=== PATIENT | male | born 1945 | race Caucasian/White ===

== ENCOUNTER 2020-08-04 12:59 | Inpatient (IN) ==
[2020-08-04] MEDS ORDERED: NORMAL SALINE 1,000 ML IV ONE (13:08)
--- NOTE | 2020-08-04 13:24 | ERNOTE ---
Neuro HPI ER Record Date of Service: 08/04/20 Presenting Symptoms: confusion Time Seen by Provider: 08/04/20 13:01 Source: patient, EMS Exam Limitations: clinical condition Immunizations: IMMUNIZATION HX Immunizations Up to Date No History of Influenza Vaccine More Information Required Hx Pneumococcal Vaccination More Information Required Allergies/Adverse Reactions: Allergies Allergy/AdvReac Type Severity Reaction Status Date / Time amoxicillin [Amoxicillin] Allergy Mild Hives Verified 08/04/20 13:12 Home Medications: HOME MEDICATIONS blood sugar diagnostic See Dose Instructions .ROUTE .MEDSUPPLY #20 ea 03/13/18 [Last Taken Unknown] blood-glucose meter See Dose Instructions .ROUTE .MEDSUPPLY #1 ea 03/13/18 [Last Taken Unknown] finasteride 5 mg tablet 5 mg PO DAILY 03/13/18 [Last Taken Unknown] lancets 28 gauge See Dose Instructions .ROUTE .MEDSUPPLY #25 ea 03/13/18 [Last Taken Unknown] tamsulosin 0.4 mg capsule 0.4 mg PO DAILY 03/13/18 [Last Taken Unknown] glipizide 10 mg tablet See Rx Instructions .ROUTE .COMPLEX #60 tablet 10/11/19 [Last Taken Unknown] simvastatin 40 mg tablet See Rx Instructions .ROUTE .COMPLEX #30 unknown measurement unit code: tablet 02/17/20 [Last Taken Unknown] levothyroxine 75 mcg tablet See Rx Instructions .ROUTE .COMPLEX #30 unknown measurement unit code: tablet 03/19/20 [Last Taken Unknown] clopidogrel 75 mg tablet See Rx Instructions .ROUTE .COMPLEX #30 tablet 06/05/20 [Last Taken Unknown] metformin 1,000 mg tablet 1,000 mg PO BID #60 tab 06/05/20 [Last Taken Unknown] - History of Present Illness Narrative: Patient presents to the ED for confusion He was apparently continuing to drive through the back drive up window and ask the same questions. Normally the bank employees stay is is fine but this was very unusual for him so EMS called. Noted to be confused and brought to the ED. He has no complaints. Does not know the year, did not know the president but was told that and now remembers that. No physical complaints, no pain, no trauma. Unknown onset of Sx. Onset: cannot confirm onset Severity: moderate - Character of Deficits New weakness: Present: other - none Altered sensation: Present: other - none Additional Deficits: Absent: vision problems, difficulty swallowing, decrease ability to stand Baseline Cognition: Present: alert, oriented x 4 Associated Symptoms: Reports: confused. Denies: fever/chills, chest pain, neck/ back pain, headache, seizure, decreased responsiveness Prior Treament: Denies: recently seen Review of Systems - Narrative Narrative: unable to obtain ROS in entirety due to clinical condition Medical History (Last Reviewed 08/04/20 @ 13:23 by Isaac Calixto MD) Diabetes mellitus type 2 in nonobese Onset Date: ~12/2009 Hyperlipidemia Onset Date: Unknown Hypertension Onset Date: Unknown Hypothyroidism Onset Date: Unknown Stroke Onset Date: Unknown Surgical History: Surgical History (Last Reviewed 08/04/20 @ 13:23 by Isaac Calixto MD) History of cholecystectomy Onset Date: Unknown History of tonsillectomy Onset Date: Unknown Family History: Family History (Last Reviewed 08/04/20 @ 13:23 by Isaac Calixto MD) Father CAD (coronary artery disease) Mother Diabetes Social History: (Last Reviewed 08/04/20 @ 13:23 by Isaac Calixto MD) Social History: Marital status: household members: none Service: Yes Service comment: [facility] Tobacco: Smoking Status: Never smoker Alcohol: alcohol intake: never Substance Use: substance use type: does not use Dietary Habits: caffeine: Yes Physical Exam - Physical Exam General Appearance: Present: alert, no apparent distress Head Exam: Present: normal inspection, no evidence of injury Eye Exam: Normal inspection: bilateral, PERRL: bilateral Ears, Nose, Throat: Present: normal ENT inspection Neck: Present: normal inspection Respiratory: Present: no respiratory distress, normal breath sounds, no accessory muscle use, lungs clear Cardiovascular/Chest: Present: regular rate, rhythm, normal peripheral pulses Gastrointestinal/Abdominal: Present: normal bowel sounds, nontender, nondistend ed, soft Back Exam: Absent: CVA tenderness (R), CVA tenderness (L) Extremity Exam: Present: non-tender, normal range of motion Neurological Exam: Present: no motor/sensory deficits, 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 - Vital Signs Patient's Vital Signs:: I have reviewed the patient's vital signs. Vital Signs: Vital Signs 08/04/20 13:00 Temperature 36.2 C Pulse Rate 94 Respiratory Rate 15 Blood Pressure 141/80 O2 Sat by Pulse Oximetry 93 - EKG EKG #1 EKG: NSR EKG read: Interp. by me EKG Comments: NSR rate 96. Ectopy noted. Non-specific ST/T wave changes, no STEMI - X-Ray X-Ray #1 X-Ray: chest Interpretation: Interp. by me X-ray Comments: I personally reviewed CXR image as well as official radiology report - CT/Ultrasound CT/Ultrasound Narrative: I reviewed official radiology report for CT head. - Progress/Reassessment Chief Complaint: Altered Mental Status Progress Note-Subjective: 08/04/20 14:54 Patient given IV ABx initially but did come back COVID positive. This is covid pneumonia. He is altered and cannot go home from this standpoint, likely from the Covid but he does have Hx of stroke so this may be sorted out. D/W Dr Zuniga who will admit. He understands need for admission. Departure Clinical Impression: Confusion, Pneumonia due to COVID-19 virus, Hypokalemia, Hyperglycemia - Departure Disposition: Still a patient Condition: Fair Referrals: Eneida Munguia MD [Primary Care Provider] -
[2020-08-04 13:39] LABS: Hematocrit 43.5 % (42.0-52.0); Hemoglobin 15.3 gm/dL (13.5-18.0); Mean Cell Volume 88.1 fl (78-100); Mean Corpuscular Hgb Conc 35.2 g/dl (32-36); Mean Platelet Volume 10.3 fl (8-11.3); Platelet Count 293 K/mm3 (150-450); Red Blood Count 4.94 M/mm3 (4.7-6.0); Red Cell Distribution Width 12.3 % (11.5-14.0); White Blood Count 11.6 K/mm3 (4.0-10.5)
[2020-08-04 13:46] LABS: Total Cells Counted 100
[2020-08-04 13:59] LABS: Band 5 % (0-2.0); Lymphocyte 13 % (20-51); Monocyte 2 % (0-9); Neutrophil 80 % (42-75); Neutrophil # 9.3 K/mm3 (1.3-6.0)
[2020-08-04 14:00] LABS: Platelet Estimate Normal (NORMAL); RBC Morphology Normal (NORMAL)
[2020-08-04 14:02] LABS: ALT 49 U/L (19-67); AST 33 U/L (0-48); Alkaline Phosphatase * 75 U/L (50-170); Anion Gap 12.7 mmol/L (6.8-13.8); BUN/Creatinine Ratio 27.1 (9.0-21.6); Bilirubin, Total 1.7 mg/dL (0.0-1.1); Blood Urea Nitrogen 32 mg/dL (6-23); Ca. Corrected For Albumin 9.7 mg/dL (8.4-10.2); Calcium * 9.2 mg/dL (7.9-10.9); Carbon Dioxide 27.9 mmol/L (24-32.6); Chloride 94 mmol/L (97-106); Glucose * 437 mg/dL (70-110); Potassium 2.6 mmol/L (3.4-4.6); Sodium 132 mmol/L (132-142)
[2020-08-04 14:03] LABS: Troponin I Less than 0.017 ng/mL (0.00-0.10)
[2020-08-04] MEDS ORDERED: LEVOFLOXACIN IN DEXTROSE 5 % 500 MG/100 ML BAG IV ONE (14:16)
[2020-08-04] MEDS ORDERED: POTASSIUM CHLORIDE IN WATER 100 ML IV ONE (14:55)
[2020-08-04 16:49] LABS: Urine Bilirubin Negative (NEGATIVE); Urine Blood 50 /ul (NEGATIVE); Urine Ketone 15 mg/dL (NEGATIVE); Urine Nitrite Negative (NEGATIVE); Urine Protein 30 mg/dL (NEGATIVE); Urine Specific Gravity 1.015 SP.GR. (1.005-1.030); Urine Urobilinogen Normal (NORMAL)
[2020-08-04 17:01] LABS: Cocaine Ur Negative (NEGATIVE); Urine Barbiturate Negative (NEGATIVE); Urine Benzodiazepines Negative (NEGATIVE); Urine Opiates Negative (NEGATIVE); Urine PCP Negative (NEGATIVE); Urine THC Negative (NEGATIVE)
[2020-08-04 17:07] LABS: Urine Appearance Clear (CLEAR); Urine Color Yellow
[2020-08-04 17:08] LABS: Urine Bacteria 2+; Urine RBC TRACE /hpf (0-5); Urine WBC TRACE /hpf (0-5)
--- NOTE | 2020-08-04 18:19 | HP ---
Chief Complaint - Chief Complaint Date of Service: 08/04/20 Time of Service: 16:46 Chief Complaint: Altered mental status History of Present Illness: 75-year-old male with a past medical history of hypertension, hyperlipidemia, type 2 diabetes mellitus, hypothyroidism, stroke presents with altered mental status. He was found driving around the bank in a confused state. The staff at the [place] stated he was driving around the bank repeatedly trying to withdraw money. The staff recognized the patient and realized this was not normal behavior for him. They called the police and he was brought to the emergency room. In the ER he was found to have stable vitals, mild leukocytosis at 11.6, potassium of 2.6, lactic acid of 2.4, normal UA, normal tox screen, Covid positive. Chest x-ray shows left lung infiltrate. He is admitted for Covid pneumonia. He received 10 mEq of potassium in the ER and a dose of Levaquin. Medical History (Last Reviewed 08/04/20 @ 13:23 by Isaac Calixto MD) Diabetes mellitus type 2 in nonobese Onset Date: ~12/2009 Hyperlipidemia Onset Date: Unknown Hypertension Onset Date: Unknown Hypothyroidism Onset Date: Unknown Stroke Onset Date: Unknown Surgical History: Surgical History (Last Reviewed 08/04/20 @ 13:23 by Isaac Calixto MD) History of cholecystectomy Onset Date: Unknown History of tonsillectomy Onset Date: Unknown Family History: Family History (Last Reviewed 08/04/20 @ 13:23 by Isaac Calixto MD) Father CAD (coronary artery disease) Mother Diabetes Social History: (Last Reviewed 08/04/20 @ 13:23 by Isaac Calixto MD) Social History: Marital status: household members: none Service: Yes Service comment: [facility] Tobacco: Smoking Status: Never smoker Alcohol: alcohol intake: never Substance Use: substance use type: does not use Dietary Habits: caffeine: Yes Review Of Systems (GEN) - Review of Systems Generalized/Overall Review: Absent: Fever Respiratory: Absent: Shortness of Breath Cardiac: Absent: Chest Pain Abdominal: Absent: Abdominal Pain Misc: All systems neg except as marked Immunizations: IMMUNIZATION HX Immunizations Up to Date No History of Influenza Vaccine More Information Required Hx Pneumococcal Vaccination More Information Required Allergies/Adverse Reactions: Allergies Allergy/AdvReac Type Severity Reaction Status Date / Time amoxicillin [Amoxicillin] Allergy Mild Hives Verified 08/04/20 13:12 Home Medications: HOME MEDICATIONS blood sugar diagnostic See Dose Instructions .ROUTE .MEDSUPPLY #20 ea 03/13/18 [Last Taken Unknown] blood-glucose meter See Dose Instructions .ROUTE .MEDSUPPLY #1 ea 03/13/18 [Last Taken Unknown] finasteride 5 mg tablet 5 mg PO DAILY 03/13/18 [Last Taken Unknown] lancets 28 gauge See Dose Instructions .ROUTE .MEDSUPPLY #25 ea 03/13/18 [Last Taken Unknown] tamsulosin 0.4 mg capsule 0.4 mg PO DAILY 03/13/18 [Last Taken Unknown] glipizide 10 mg tablet See Rx Instructions .ROUTE .COMPLEX #60 tablet 10/11/19 [Last Taken Unknown] simvastatin 40 mg tablet See Rx Instructions .ROUTE .COMPLEX #30 unknown measurement unit code: tablet 02/17/20 [Last Taken Unknown] levothyroxine 75 mcg tablet See Rx Instructions .ROUTE .COMPLEX #30 unknown measurement unit code: tablet 03/19/20 [Last Taken Unknown] clopidogrel 75 mg tablet See Rx Instructions .ROUTE .COMPLEX #30 tablet 06/05/20 [Last Taken Unknown] metformin 1,000 mg tablet 1,000 mg PO BID #60 tab 06/05/20 [Last Taken Unknown] Exam - Exam Vital Signs: Vital Signs - Last Taken Temp 36.2 C 08/04/20 13:00 Pulse 90 08/04/20 16:30 Resp 14 08/04/20 16:30 BP 102/64 08/04/20 16:30 Pulse Ox 95 08/04/20 16:30 Constitutional: Present: Alert, Oriented x3, Cooperative, Well developed, Well nourished, No distress, Elderly ENT Exam: Present: hearing grossly normal, dry mucous membranes Eye Exam: bilateral eye: normal inspection, PERRL, EOMI Neck: Present: non-tender, supple. Absent: lymphadenopathy (R), lymphadenopathy (L) Back Exam: Present: normal inspection, no CVA tenderness, no vertebral tenderness Respiratory: Present: lungs clear, no respiratory distress, no accessory muscle use, No wheezing. Absent: crackles, rhonchi Cardiovascular/Chest: Present: normal peripheral pulses, regular rate, rhythm, no edema, no murmur Peripheral Pulses: dorsalis-pedis (R): 1+, dorsalis-pedis (L): 1+ Abdomen: Present: Normal bowel sounds, soft, nontender Extremity: Present: no pedal edema Skin Exam: Present: normal color, warm/dry Neurologic: Present: alert, normal mood/affect Appearance: Present: appropriate appearance Eye contact: Present: cooperative Thoughts: Present: normal mood /affect Diagnostic Studies: Abnormal Lab Results 08/04/20 08/04/20 08/04/20 Range/Units 13:15 13:32 13:32 WBC 11.6 H (4.0-10.5) K/mm3 Neutrophils % (Manual) 80 H (42-75) % Band Neuts % (Manual) 5 H (0-2.0) % Lymphocytes % (Manual) 13 L (20-51) % Neutrophils # (Manual) 9.3 H (1.3-6.0) K/mm3 Potassium 2.6 L D (3.4-4.6) mmol/L Chloride 94 L (97-106) mmol/L BUN 32 H D (6-23) mg/dL BUN/Creatinine Ratio 27.1 H (9.0-21.6) Random Glucose 437 H (70-110) mg/dL Lactic Acid, Venous (0.4-2.0) mmol/L Total Bilirubin 1.7 H (0.0-1.1) mg/dL Albumin 3.0 L (3.4-5.0) gm/dl Procalcitonin (0.05-0.50) ng/mL Urine Protein (NEGATIVE) mg/dL Urine Glucose (UA) (NEGATIVE) mg/dL Urine Blood (NEGATIVE) /ul Urine Bacteria (NONE) SARS-CoV-2 (PCR) Detected H (NotDetected) 08/04/20 08/04/20 08/04/20 Range/Units 13:32 13:32 16:42 WBC (4.0-10.5) K/mm3 Neutrophils % (Manual) (42-75) % Band Neuts % (Manual) (0-2.0) % Lymphocytes % (Manual) (20-51) % Neutrophils # (Manual) (1.3-6.0) K/mm3 Potassium (3.4-4.6) mmol/L Chloride (97-106) mmol/L BUN (6-23) mg/dL BUN/Creatinine Ratio (9.0-21.6) Random Glucose (70-110) mg/dL Lactic Acid, Venous 2.4 H* (0.4-2.0) mmol/L Total Bilirubin (0.0-1.1) mg/dL Albumin (3.4-5.0) gm/dl Procalcitonin Less than 0.05 L (0.05-0.50) ng/mL Urine Protein 30 H (NEGATIVE) mg/dL Urine Glucose (UA) 500 H (NEGATIVE) mg/dL Urine Blood 50 H (NEGATIVE) /ul Urine Bacteria 2+ H (NONE) SARS-CoV-2 (PCR) (NotDetected) Laboratory Results WBC 11.6 K/mm3 (4.0-10.5) H 08/04/20 13:32 RBC 4.94 M/mm3 (4.7-6.0) 08/04/20 13:32 Hgb 15.3 gm/dL (13.5-18.0) 08/04/20 13:32 Hct 43.5 % (42.0-52.0) 08/04/20 13:32 MCV 88.1 fl (78-100) 08/04/20 13:32 MCH 31.0 pg (27-31) 08/04/20 13:32 MCHC 35.2 g/dl (32-36) 08/04/20 13:32 RDW 12.3 % (11.5-14.0) 08/04/20 13:32 Plt Count 293 K/mm3 (150-450) 08/04/20 13:32 MPV 10.3 fl (8-11.3) 08/04/20 13:32 Neutrophils % (Manual) 80 % (42-75) H 08/04/20 13:32 Band Neuts % (Manual) 5 % (0-2.0) H 08/04/20 13:32 Lymphocytes % (Manual) 13 % (20-51) L 08/04/20 13:32 Monocytes % (Manual) 2 % (0-9) 08/04/20 13:32 Neutrophils # (Manual) 9.3 K/mm3 (1.3-6.0) H 08/04/20 13:32 Lymphocytes # (Manual) 1.5 k/mm3 (1.5-3.5) 08/04/20 13:32 Monocytes # (Manual) 0.2 k/mm3 (0.0-1.0) 08/04/20 13:32 Platelet Estimate Normal (NORMAL) 08/04/20 13:32 RBC Morphology Normal (NORMAL) 08/04/20 13:32 Sodium 132 mmol/L (132-142) 08/04/20 13:32 Plasma Sodium 137 mmol/L (130-142) 08/04/20 13:32 Potassium 2.6 mmol/L (3.4-4.6) L D 08/04/20 13:32 Chloride 94 mmol/L (97-106) L 08/04/20 13:32 Carbon Dioxide 27.9 mmol/L (24-32.6) 08/04/20 13:32 Anion Gap 12.7 mmol/L (6.8-13.8) 08/04/20 13:32 BUN 32 mg/dL (6-23) H D 08/04/20 13:32 Creatinine 1.18 mg/dL (0.4-1.4) 08/04/20 13:32 Est GFR (Non-Af Amer) 64 mL/min (60-130) 08/04/20 13:32 BUN/Creatinine Ratio 27.1 (9.0-21.6) H 08/04/20 13:32 Random Glucose 437 mg/dL (70-110) H 08/04/20 13:32 Lactic Acid, Venous 1.9 mmol/L (0.4-2.0) 08/04/20 16:15 Calcium 9.2 mg/dL (7.9-10.9) 08/04/20 13:32 Calcium Adj for Albumin 9.7 mg/dL (8.4-10.2) 08/04/20 13:32 Total Bilirubin 1.7 mg/dL (0.0-1.1) H 08/04/20 13:32 AST 33 U/L (0-48) 08/04/20 13:32 ALT 49 U/L (19-67) 08/04/20 13:32 Alkaline Phosphatase 75 U/L (50-170) 08/04/20 13:32 Ammonia Less than 17.0 mcmol/L (11-35) 08/04/20 13:32 Troponin I Less than 0.017 ng/mL (0.00-0.10) 08/04/20 13:32 Total Protein 7.0 gm/dL (6.2-8.2) 08/04/20 13:32 Albumin 3.0 gm/dl (3.4-5.0) L 08/04/20 13:32 Procalcitonin Less than 0.05 ng/mL (0.05-0.50) L 08/04/20 13:32 Urine Color Yellow 08/04/20 16:42 Urine Appearance Clear (CLEAR) 08/04/20 16:42 Urine pH 6.0 pH (5.0-7.0) 08/04/20 16:42 Ur Specific [place] 1.015 SP.GR. (1.005-1.030) 08/04/20 16:42 Urine Protein 30 mg/dL (NEGATIVE) H 08/04/20 16:42 Urine Glucose (UA) 500 mg/dL (NEGATIVE) H 08/04/20 16:42 Urine Ketones 15 mg/dL (NEGATIVE) 08/04/20 16:42 Urine Blood 50 /ul (NEGATIVE) H 08/04/20 16:42 Urine Nitrate Negative (NEGATIVE) 08/04/20 16:42 Urine Bilirubin Negative mg/dl (NEGATIVE) 08/04/20 16:42 Urine Urobilinogen Normal EU/dl (NORMAL) 08/04/20 16:42 Ur Leukocyte Esterase Negative /ul (NEGATIVE) 08/04/20 16:42 Urine RBC Trace /hpf (0-5) 08/04/20 16:42 Urine WBC Trace /hpf (0-5) 08/04/20 16:42 Ur Epithelial Cells Trace /hpf (0-5) 08/04/20 16:42 Urine Bacteria 2+ (NONE) H 08/04/20 16:42 Urine Culture Comments No culture indicated 08/04/20 16:42 Urine Opiates Screen Negative (NEGATIVE) 08/04/20 16:42 Barbiturate Screen Negative (NEGATIVE) 08/04/20 16:42 Ur Phencyclidine Scrn Negative (NEGATIVE) 08/04/20 16:42 Urine Amphetamine Negative (NEGATIVE) 08/04/20 16:42 U Benzodiazepines Scrn Negative (NEGATIVE) 08/04/20 16:42 Urine Cocaine Screen Negative (NEGATIVE) 08/04/20 16:42 Urine Marijuana (THC) Negative (NEGATIVE) 08/04/20 16:42 Ethyl Alcohol Less than 3.0 mg/dL (0.0-10.0) 08/04/20 13:32 SARS-CoV-2 (PCR) Detected (NotDetected) H 08/04/20 13:15 Assessment/Plan - Narrative Narrative: 75-year-old male with a past medical history of hypertension, hyperlipidemia, type 2 diabetes mellitus, hypothyroidism, stroke presents with altered mental status. He was found driving around the bank in a confused state. The staff at the bank stated he was driving around the bank repeatedly trying to withdraw money. The staff recognized the patient and realized this was not normal behavior for him. They called the police and he was brought to the emergency room. In the ER he was found to have stable vitals, mild leukocytosis at 11.6, potassium of 2.6, lactic acid of 2.4, normal UA, normal tox screen, Covid positive. Chest x-ray shows left lung infiltrate. He is admitted for Covid pneumonia. He received 10 mEq of potassium in the ER and a dose of Levaquin. Plan #1 replete potassium #2 resume home medications for comorbidities #3 CBC and CMP in the morning - Assessment/Plan (1) Hypokalemia Problem: Acute (2) Pneumonia due to COVID-19 virus Problem: Acute (3) Altered mental status Problem: Acute (4) Hypertension Problem: Acute (5) Diabetes mellitus type 2 in nonobese Problem: Acute (6) Hypothyroid Problem: Acute (7) Hyperlipidemia Problem: Acute
[2020-08-04] MEDS ORDERED: POTASSIUM BICARBONATE/CIT AC 25 MEQ TABLET.EFF PO ONE (18:20)
[2020-08-04] MEDS ORDERED: NORMAL SALINE 1,000 ML IV PRN (18:27)
[2020-08-04] MEDS: POTASSIUM CHLORIDE IN WATER 100 ML IV SCH ×2 (19:47→21:12)
[2020-08-04] MEDS ORDERED: POTASSIUM BICARBONATE/CIT AC 25 MEQ TABLET.EFF ONE ×2 (22:05→22:08)
[2020-08-04] MEDS ORDERED: LIDOCAINE HCL 50 ML VIAL ONE (23:56)
[2020-08-05] MEDS: POTASSIUM CHLORIDE IN WATER 100 ML IV SCH (01:50)
[2020-08-05] MEDS ORDERED: INSULIN LISPRO 100 UNITS/ML VIAL ONE (04:05)
[2020-08-05 06:35] LABS: Hemoglobin 13.5 gm/dL (13.5-18.0); Mean Cell Volume 89.2 fl (78-100); Mean Corpuscular Hemoglobin 30.9 pg (27-31); Mean Corpuscular Hgb Conc 34.6 g/dl (32-36); Mean Platelet Volume 10.7 fl (8-11.3); Platelet Count 272 K/mm3 (150-450); Red Blood Count 4.37 M/mm3 (4.7-6.0); Red Cell Distribution Width 12.1 % (11.5-14.0); White Blood Count 8.9 K/mm3 (4.0-10.5)
[2020-08-05 06:49] LABS: Albumin * 2.6 gm/dl (3.4-5.0); BUN/Creatinine Ratio 19.8 (9.0-21.6); Bilirubin, Total 1.2 mg/dL (0.0-1.1); Ca. Corrected For Albumin 9.3 mg/dL (8.4-10.2); Calcium * 8.5 mg/dL (7.9-10.9); Carbon Dioxide 30.3 mmol/L (24-32.6); Potassium 3.3 mmol/L (3.4-4.6); Total Protein 5.8 gm/dL (6.2-8.2)
[2020-08-05 07:06] LABS: Total Cells Counted 100
[2020-08-05] MEDS: INSULIN LISPRO 100 UNITS/ML VIAL SC SCH ×4 (07:38→20:17)
[2020-08-05 07:39] LABS: Eosinophil 1 % (0-3); Lymphocyte 48 % (20-51); Monocyte 3 % (0-9); Neutrophil 48 % (42-75); Neutrophil # 4.3 K/mm3 (1.3-6.0)
[2020-08-05 07:40] LABS: Platelet Estimate Normal (NORMAL); RBC Morphology Normal (NORMAL)
[2020-08-05] MEDS ORDERED: POTASSIUM BICARBONATE/CIT AC 25 MEQ TABLET.EFF PO ONE (09:03)
--- NOTE | 2020-08-05 09:51 | PN ---
Subjective - Date and Time Seen Date: 08/05/20 Time: 08:48 Subjective Narrative: He feels okay but continues to be confused. He is alert and oriented x3 but takes time to process information. Objective - Review of Systems Generalized/Overall Review: Denies: Fever Respiratory: Denies: Cough, Shortness of Breath Cardiac: Denies: Chest Pain Abdominal: Denies: Abdominal Pain Misc: All systems neg except as marked - Vitals Vitals: Last Vital Signs Temp 36.3 C 08/05/20 07:33 Pulse 99 08/05/20 08:00 Resp 12 08/05/20 07:33 BP 139/70 08/05/20 07:33 Pulse Ox 95 08/05/20 07:33 - Abnormal Lab Findings Abnormal Lab Findings: Abnormal Lab Results 08/04/20 08/04/20 08/04/20 Range/Units 13:15 13:32 13:32 WBC 11.6 H (4.0-10.5) K/mm3 RBC (4.7-6.0) M/mm3 Hct (42.0-52.0) % Neutrophils % (Manual) 80 H (42-75) % Band Neuts % (Manual) 5 H (0-2.0) % Lymphocytes % (Manual) 13 L (20-51) % Neutrophils # (Manual) 9.3 H (1.3-6.0) K/mm3 Lymphocytes # (Manual) (1.5-3.5) k/mm3 Potassium 2.6 L D (3.4-4.6) mmol/L Chloride 94 L (97-106) mmol/L BUN 32 H D (6-23) mg/dL Est GFR (Non-Af Amer) (60-130) mL/min BUN/Creatinine Ratio 27.1 H (9.0-21.6) Random Glucose 437 H (70-110) mg/dL Lactic Acid, Venous (0.4-2.0) mmol/L Total Bilirubin 1.7 H (0.0-1.1) mg/dL Total Protein (6.2-8.2) gm/dL Albumin 3.0 L (3.4-5.0) gm/dl Procalcitonin (0.05-0.50) ng/mL Urine Protein (NEGATIVE) mg/dL Urine Glucose (UA) (NEGATIVE) mg/dL Urine Blood (NEGATIVE) /ul Urine Bacteria (NONE) SARS-CoV-2 (PCR) Detected H (NotDetected) 08/04/20 08/04/20 08/04/20 Range/Units 13:32 13:32 16:42 WBC (4.0-10.5) K/mm3 RBC (4.7-6.0) M/mm3 Hct (42.0-52.0) % Neutrophils % (Manual) (42-75) % Band Neuts % (Manual) (0-2.0) % Lymphocytes % (Manual) (20-51) % Neutrophils # (Manual) (1.3-6.0) K/mm3 Lymphocytes # (Manual) (1.5-3.5) k/mm3 Potassium (3.4-4.6) mmol/L Chloride (97-106) mmol/L BUN (6-23) mg/dL Est GFR (Non-Af Amer) (60-130) mL/min BUN/Creatinine Ratio (9.0-21.6) Random Glucose (70-110) mg/dL Lactic Acid, Venous 2.4 H* (0.4-2.0) mmol/L Total Bilirubin (0.0-1.1) mg/dL Total Protein (6.2-8.2) gm/dL Albumin (3.4-5.0) gm/dl Procalcitonin Less than 0.05 L (0.05-0.50) ng/mL Urine Protein 30 H (NEGATIVE) mg/dL Urine Glucose (UA) 500 H (NEGATIVE) mg/dL Urine Blood 50 H (NEGATIVE) /ul Urine Bacteria 2+ H (NONE) SARS-CoV-2 (PCR) (NotDetected) 08/05/20 08/05/20 08/05/20 Range/Units 04:00 06:30 06:30 WBC (4.0-10.5) K/mm3 RBC 4.37 L (4.7-6.0) M/mm3 Hct 39.0 L (42.0-52.0) % Neutrophils % (Manual) (42-75) % Band Neuts % (Manual) (0-2.0) % Lymphocytes % (Manual) (20-51) % Neutrophils # (Manual) (1.3-6.0) K/mm3 Lymphocytes # (Manual) 4.3 H (1.5-3.5) k/mm3 Potassium 3.3 L D (3.4-4.6) mmol/L Chloride (97-106) mmol/L BUN 25 H (6-23) mg/dL Est GFR (Non-Af Amer) 59 L (60-130) mL/min BUN/Creatinine Ratio (9.0-21.6) Random Glucose 413 H 304 H (70-110) mg/dL Lactic Acid, Venous (0.4-2.0) mmol/L Total Bilirubin 1.2 H (0.0-1.1) mg/dL Total Protein 5.8 L (6.2-8.2) gm/dL Albumin 2.6 L (3.4-5.0) gm/dl Procalcitonin (0.05-0.50) ng/mL Urine Protein (NEGATIVE) mg/dL Urine Glucose (UA) (NEGATIVE) mg/dL Urine Blood (NEGATIVE) /ul Urine Bacteria (NONE) SARS-CoV-2 (PCR) (NotDetected) - Exam Constitutional: Present: Alert, Oriented x3, Cooperative, Well developed, Well nourished, No distress, Elderly ENT Exam: Present: hearing grossly normal Neck: Present: supple. Absent: lymphadenopathy (R), lymphadenopathy (L) Respiratory: Present: lungs clear, no respiratory distress, no accessory muscle use, No wheezing. Absent: crackles, rhonchi Cardiovascular/Chest: Present: normal peripheral pulses, regular rate, rhythm, no edema Abdomen: Present: Normal bowel sounds, soft, nontender Extremity: Present: no pedal edema Skin Exam: Present: warm/dry Neurologic: Present: alert, normal mood/affect Appearance: Present: appropriate appearance Eye contact: Present: cooperative Thoughts: Present: normal mood /affect Assessment/Plan Plan Narrative: 75-year-old male with a past medical history of hypertension, hyperlipidemia, type 2 diabetes mellitus, hypothyroidism, stroke presents with altered mental status. He was found driving around the bank in a confused state. The staff at the [employer] stated he was driving around the bank repeatedly trying to withdraw money. The staff recognized the patient and realized this was not normal behav ior for him. They called the police and he was brought to the emergency room. In the ER he was found to have stable vitals, mild leukocytosis at 11.6, potassium of 2.6, lactic acid of 2.4, normal UA, normal tox screen, Covid positive. Chest x-ray shows left lung infiltrate. He is admitted for Covid pneumonia. He received 10 mEq of potassium in the ER and a dose of Levaquin. His potassium is improved from 2.6-3.3 this morning. His blood sugars have also improved. He however continues to be confused and slow in processing information. I feel his confusion is likely secondary to Covid-19 pneumonia. He does not appear to be near his baseline. At baseline he is independent and drives. He will need to remain hospitalized for further evaluation and monitoring. Plan #1 replete potassium #2 resume home medications for comorbidities #3 CBC and CMP in the morning - Problems/Diagnosis (1) Hypokalemia Problem: Acute (2) Pneumonia due to COVID-19 virus Problem: Acute (3) Altered mental status Problem: Acute (4) Hypertension Problem: Acute (5) Diabetes mellitus type 2 in nonobese Problem: Acute (6) Hypothyroid Problem: Acute (7) Hyperlipidemia Problem: Acute (8) Hyperglycemia Problem: Acute
[2020-08-05] MEDS: FINASTERIDE 5 MG TABLET PO SCH (10:05)
[2020-08-05] MEDS: LEVOTHYROXINE SODIUM 75 MCG TABLET PO SCH (10:05)
[2020-08-05] MEDS: glipiZIDE 10 MG TABLET PO SCH ×2 (10:05→17:57)
[2020-08-05] MEDS: CLOPIDOGREL BISULFATE 75 MG TABLET PO SCH (10:05)
[2020-08-05] MEDS: ENOXAPARIN SODIUM 40 MG/0.4 ML SYRG SC SCH (14:30)
[2020-08-05] MEDS ORDERED: TAMSULOSIN HCL 0.4 MG CAP.SR.24H PO SCH (18:00)
[2020-08-05] MEDS: SIMVASTATIN 40 MG TABLET PO SCH (20:09)
[2020-08-06 06:22] LABS: Hematocrit 38.1 % (42.0-52.0); Hemoglobin 13.1 gm/dL (13.5-18.0); Mean Cell Volume 89.2 fl (78-100); Mean Corpuscular Hemoglobin 30.7 pg (27-31); Mean Corpuscular Hgb Conc 34.4 g/dl (32-36); Mean Platelet Volume 10.4 fl (8-11.3); Platelet Count 280 K/mm3 (150-450); Red Blood Count 4.27 M/mm3 (4.7-6.0); Red Cell Distribution Width 12.3 % (11.5-14.0)
[2020-08-06 06:32] LABS: Total Cells Counted 100
[2020-08-06 06:36] LABS: Albumin * 2.4 gm/dl (3.4-5.0); Anion Gap 9.9 mmol/L (6.8-13.8); BUN/Creatinine Ratio 20.4 (9.0-21.6); Bilirubin, Total 1.1 mg/dL (0.0-1.1); Ca. Corrected For Albumin 9.3 mg/dL (8.4-10.2); Calcium * 8.3 mg/dL (7.9-10.9); Carbon Dioxide 28.9 mmol/L (24-32.6); Potassium 2.8 mmol/L (3.4-4.6)
[2020-08-06 06:52] LABS: Eosinophil 2 % (0-3); Lymphocyte 18 % (20-51); Monocyte 7 % (0-9); Neutrophil 73 % (42-75); Neutrophil # 5.8 K/mm3 (1.3-6.0); Platelet Estimate Normal (NORMAL)
[2020-08-06 06:53] LABS: RBC Morphology Normal (NORMAL)
[2020-08-06] MEDS: INSULIN LISPRO 100 UNITS/ML VIAL SC SCH ×4 (07:18→20:43)
[2020-08-06] MEDS: glipiZIDE 10 MG TABLET PO SCH ×2 (07:18→16:39)
[2020-08-06] MEDS: LEVOTHYROXINE SODIUM 75 MCG TABLET PO SCH (07:18)
[2020-08-06] MEDS ORDERED: POTASSIUM BICARBONATE/CIT AC 25 MEQ TABLET.EFF PO ONE (08:13)
[2020-08-06] MEDS: FINASTERIDE 5 MG TABLET PO SCH (08:40)
[2020-08-06] MEDS: CLOPIDOGREL BISULFATE 75 MG TABLET PO SCH (08:40)
--- NOTE | 2020-08-06 09:35 | PN ---
Subjective - Date and Time Seen Date: 08/06/20 Time: 08:27 Subjective Narrative: He denies shortness of breath or chest pain. He continues to be confused. 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 He states he spoke with his son yesterday. Objective - Review of Systems Generalized/Overall Review: Denies: Fever Respiratory: Denies: Shortness of Breath Cardiac: Denies: Chest Pain Abdominal: Denies: Abdominal Pain Misc: All systems neg except as marked - Vitals Vitals: Last Vital Signs Temp 37.2 C 08/06/20 08:31 Pulse 74 08/06/20 08:31 Resp 16 08/06/20 08:31 BP 125/72 08/06/20 08:31 Pulse Ox 93 08/06/20 08:31 - Abnormal Lab Findings Abnormal Lab Findings: Abnormal Lab Results 08/06/20 08/06/20 Range/Units 06:19 06:19 RBC 4.27 L (4.7-6.0) M/mm3 Hgb 13.1 L (13.5-18.0) gm/dL Hct 38.1 L (42.0-52.0) % Lymphocytes % (Manual) 18 L (20-51) % Lymphocytes # (Manual) 1.4 L (1.5-3.5) k/mm3 Potassium 2.8 L (3.4-4.6) mmol/L Random Glucose 255 H (70-110) mg/dL Total Protein 6.0 L (6.2-8.2) gm/dL Albumin 2.4 L (3.4-5.0) gm/dl - Exam Constitutional: Present: Alert, Cooperative, Well developed, Well nourished, No distress, Elderly ENT Exam: Present: hearing grossly normal Neck: Present: non-tender, supple. Absent: lymphadenopathy (R), lymphadenopathy (L) Respiratory: Present: lungs clear, no respiratory distress, no accessory muscle use, No wheezing. Absent: rhonchi Cardiovascular/Chest: Present: normal peripheral pulses, no edema, no murmur, tachycardia Abdomen: Present: Normal bowel sounds, soft, nontender Extremity: Present: no pedal edema Skin Exam: Present: normal color, warm/dry Neurologic: Present: alert, normal mood/affect Appearance: Present: appropriate appearance Eye contact: Present: cooperative Thoughts: Present: normal mood /affect Assessment/Plan Plan Narrative: 75-year-old male with a past medical history of hypertension, hyperlipidemia, type 2 diabetes mellitus, hypothyroidism, stroke presents with altered mental status. He was found driving around the bank in a confused state. The staff at the bank stated he was driving around the bank repeatedly trying to withdraw money. The staff recognized the patient and realized this was not normal behavior for him. They called the police and he was brought to the emergency room. In the ER he was found to have stable vitals, mild leukocytosis at 11.6, potassium of 2.6, lactic acid of 2.4, normal UA, normal tox screen, Covid positive. Chest x-ray shows left lung infiltrate. He is admitted for Covid pneumonia. He received 10 mEq of potassium in the ER and a dose of Levaquin. His potassium is improved from 2.6-3.3 this morning. His blood sugars have also improved. He however continues to be confused and slow in processing information. I feel his confusion is likely secondary to Covid-19 pneumonia. He does not appear to be near his baseline. At baseline he is independent and drives. He will need to remain hospitalized for further evaluation and monitoring. Plan #1 replete potassium #2 resume home medications for comorbidities #3 CBC and CMP in the morning #4 physical therapy to evaluate and determine disposition needs - Problems/Diagnosis (1) Hypokalemia Problem: Acute (2) Pneumonia due to COVID-19 virus Problem: Acute (3) Altered mental status Problem: Acute (4) Hypertension Problem: Acute (5) Diabetes mellitus type 2 in nonobese Problem: Acute (6) Hypothyroid Problem: Acute (7) Hyperlipidemia Problem: Acute (8) Hyperglycemia Problem: Acute
[2020-08-06] MEDS: ENOXAPARIN SODIUM 40 MG/0.4 ML SYRG SC SCH (13:08)
[2020-08-06] MEDS: SIMVASTATIN 40 MG TABLET PO SCH (20:06)
[2020-08-07 06:31] LABS: Hematocrit 37.7 % (42.0-52.0); Mean Cell Volume 90.6 fl (78-100); Mean Corpuscular Hemoglobin 31.3 pg (27-31); Mean Corpuscular Hgb Conc 34.5 g/dl (32-36); Mean Platelet Volume 10.3 fl (8-11.3); Platelet Count 305 K/mm3 (150-450); Red Blood Count 4.16 M/mm3 (4.7-6.0); Red Cell Distribution Width 12.3 % (11.5-14.0); White Blood Count 6.5 K/mm3 (4.0-10.5)
[2020-08-07 06:38] LABS: Total Cells Counted 100
[2020-08-07 06:51] LABS: Albumin * 2.2 gm/dl (3.4-5.0); Anion Gap 10.6 mmol/L (6.8-13.8); BUN/Creatinine Ratio 18.8 (9.0-21.6); Ca. Corrected For Albumin 9.7 mg/dL (8.4-10.2); Calcium * 8.6 mg/dL (7.9-10.9); Carbon Dioxide 29.7 mmol/L (24-32.6); Potassium 3.3 mmol/L (3.4-4.6)
[2020-08-07 06:55] LABS: Eosinophil 1 % (0-3); Lymphocyte 20 % (20-51); Monocyte 7 % (0-9); Neutrophil 72 % (42-75); Neutrophil # 4.7 K/mm3 (1.3-6.0)
[2020-08-07 06:56] LABS: Platelet Estimate Normal (NORMAL); RBC Morphology Normal (NORMAL)
[2020-08-07] MEDS: LEVOTHYROXINE SODIUM 75 MCG TABLET PO SCH (07:18)
[2020-08-07] MEDS: INSULIN LISPRO 100 UNITS/ML VIAL SC SCH ×2 (07:18→11:45)
[2020-08-07] MEDS: glipiZIDE 10 MG TABLET PO SCH (07:18)
[2020-08-07] MEDS: CLOPIDOGREL BISULFATE 75 MG TABLET PO SCH (08:48)
[2020-08-07] MEDS: FINASTERIDE 5 MG TABLET PO SCH (08:48)
[2020-08-07] MEDS ORDERED: POTASSIUM BICARBONATE/CIT AC 25 MEQ TABLET.EFF PO SCH (09:00)
--- NOTE | 2020-08-07 09:20 | DS ---
(1) Hypokalemia Problem: Acute (2) Pneumonia due to COVID-19 virus Problem: Acute (3) Altered mental status Problem: Acute (4) Hypertension Problem: Acute (5) Diabetes mellitus type 2 in nonobese Problem: Acute (6) Hypothyroid Problem: Acute (7) Hyperlipidemia Problem: Acute (8) Hyperglycemia Problem: Acute Hospital Course: 75-year-old male with a past medical history of hypertension, hyperlipidemia, type 2 diabetes mellitus, hypothyroidism, stroke presents with altered mental status. He was found driving around the bank in a confused state. The staff at the bank stated he was driving around the bank repeatedly trying to withdraw money. The staff recognized the patient and realized this was not normal behavior for him. They called the police and he was brought to the emergency room. In the ER he was found to have stable vitals, mild leukocytosis at 11.6, potassium of 2.6, lactic acid of 2.4, normal UA, normal tox screen, Covid positive. Chest x-ray shows left lung infiltrate. He is admitted for Covid pneumonia. He received 10 mEq of potassium in the ER and a dose of Levaquin. His potassium and blood sugars have improved. His vitals remained stable and he did not require oxygen supplementation. His altered mental status was likely secondary to COVID-19. He is doing much better today his mentation has improved and he is stable to be discharged home. He will follow-up with his PCP in 2 weeks. Procedures Performed: none Results and Findings: Pending Mircobiology Results 08/04/20 15:10 Blood Blood Culture - Preliminary NO GROWTH AFTER 48 HOURS 08/04/20 14:40 Blood Blood Culture - Preliminary NO GROWTH AFTER 48 HOURS Lab Pending Results 08/04/20 13:15: SARS-CoV-2 (PCR) Detected H 08/04/20 13:32: WBC 11.6 H, RBC 4.94, Hgb 15.3, Hct 43.5, MCV 88.1, MCH 31.0, MCHC 35.2, RDW 12.3, Plt Count 293, MPV 10.3, Neutrophils % (Manual) 80 H, Band Neuts % (Manual) 5 H, Lymphocytes % (Manual) 13 L, Monocytes % (Manual) 2, Neutrophils # (Manual) 9.3 H, Lymphocytes # (Manual) 1.5, Monocytes # (Manual) 0.2, Platelet Estimate Normal, RBC Morphology Normal 08/04/20 13:32: Sodium 132, Plasma Sodium 137, Potassium 2.6 L D, Chloride 94 L, Carbon Dioxide 27.9, Anion Gap 12.7, BUN 32 H D, Creatinine 1.18, Est GFR (Non- Af Amer) 64, BUN/Creatinine Ratio 27.1 H, Random Glucose 437 H, Calcium 9.2, Calcium Adj for Albumin 9.7, Total Bilirubin 1.7 H, AST 33, ALT 49, Alkaline Phosphatase 75, Troponin I Less than 0.017, Total Protein 7.0, Albumin 3.0 L, Ethyl Alcohol Less than 3.0 08/04/20 13:32: Lactic Acid, Venous 2.4 H* 08/04/20 13:32: Ammonia Less than 17.0 08/04/20 13:32: Procalcitonin Less than 0.05 L 08/04/20 16:15: Lactic Acid, Venous 1.9 08/04/20 16:42: Urine Color Yellow, Urine Appearance Clear, Urine pH 6.0, Ur Specific [place] 1.015, Urine Protein 30 H, Urine Glucose (UA) 500 H, Urine Ketones 15, Urine Blood 50 H, Urine Nitrate Negative, Urine Bilirubin Negative, Urine Urobilinogen Normal, Ur Leukocyte Esterase Negative, Urine RBC Trace, Urine WBC Trace, Ur Epithelial Cells Trace, Urine Bacteria 2+ H, Urine Culture Comments No culture indicated 08/04/20 16:42: Urine Opiates Screen Negative, Barbiturate Screen Negative, Ur Phencyclidine Scrn Negative, Urine Amphetamine Negative, U Benzodiazepines Scrn Negative, Urine Cocaine Screen Negative, Urine Marijuana (THC) Negative 08/05/20 04:00: Random Glucose 413 H 08/05/20 06:30: WBC 8.9 D, RBC 4.37 L, Hgb 13.5, Hct 39.0 L, MCV 89.2, MCH 30.9, MCHC 34.6, RDW 12.1, Plt Count 272, MPV 10.7, Neutrophils % (Manual) 48, Lymphocytes % (Manual) 48, Monocytes % (Manual) 3, Eosinophils % (Manual) 1, Neutrophils # (Manual) 4.3, Lymphocytes # (Manual) 4.3 H, Monocytes # (Manual) 0.3, Eosinophils # (Manual) 0.1, Platelet Estimate Normal, RBC Morphology Normal 08/05/20 06:30: Sodium 134, Plasma Sodium 137, Potassium 3.3 L D, Chloride 99, Carbon Dioxide 30.3, Anion Gap 8.0, BUN 25 H, Creatinine 1.26, Est GFR (Non-Af Amer) 59 L, BUN/Creatinine Ratio 19.8, Random Glucose 304 H, Calcium 8.5, Ca lcium Adj for Albumin 9.3, Total Bilirubin 1.2 H, AST 23, ALT 40, Alkaline Phosphatase 69, Total Protein 5.8 L, Albumin 2.6 L 08/06/20 06:19: WBC 8.0, RBC 4.27 L, Hgb 13.1 L, Hct 38.1 L, MCV 89.2, MCH 30.7, MCHC 34.4, RDW 12.3, Plt Count 280, MPV 10.4, Neutrophils % (Manual) 73, Lymphocytes % (Manual) 18 L, Monocytes % (Manual) 7, Eosinophils % (Manual) 2, Neutrophils # (Manual) 5.8, Lymphocytes # (Manual) 1.4 L, Monocytes # (Manual) 0.6, Eosinophils # (Manual) 0.2, Platelet Estimate Normal, RBC Morphology Normal 08/06/20 06:19: Sodium 136, Plasma Sodium 138, Potassium 2.8 L, Chloride 100, Carbon Dioxide 28.9, Anion Gap 9.9, BUN 22, Creatinine 1.08, Est GFR (Non-Af Amer) 71 D, BUN/Creatinine Ratio 20.4, Random Glucose 255 H, Calcium 8.3, C alcium Adj for Albumin 9.3, Total Bilirubin 1.1, AST 15, ALT 32, Alkaline Phosphatase 57, Total Protein 6.0 L, Albumin 2.4 L 08/07/20 06:27: WBC 6.5, RBC 4.16 L, Hgb 13.0 L, Hct 37.7 L, MCV 90.6, MCH 31.3 H, MCHC 34.5, RDW 12.3, Plt Count 305, MPV 10.3, Neutrophils % (Manual) 72, Lymphocytes % (Manual) 20, Monocytes % (Manual) 7, Eosinophils % (Manual) 1, Neutrophils # (Manual) 4.7, Lymphocytes # (Manual) 1.3 L, Monocytes # (Manual) 0.5, Eosinophils # (Manual) 0.1, Platelet Estimate Normal, RBC Morphology Normal 08/07/20 06:27: Sodium 139, Plasma Sodium 141, Potassium 3.3 L, Chloride 102, Carbon Dioxide 29.7, Anion Gap 10.6, BUN 21, Creatinine 1.12, Est GFR (Non-Af Amer) 68, BUN/Creatinine Ratio 18.8, Random Glucose 194 H, Calcium 8.6, Calcium Adj for Albumin 9.7, Total Bilirubin 1.0, AST 16, ALT 28, Alkaline Phosphatase 52, Total Protein 6.0 L, Albumin 2.2 L Discharge Location: Home Disposition: Home self-care Condition: Stable Discharge Activity: Activity as tolerated Discharge Diet: Consistent carbs Referrals: Eneida Munguia MD [Primary Care Provider] - Complete Home Medications List: Complete Home Medication List: blood sugar diagnostic See Dose Instructions .ROUTE .MEDSUPPLY #20 ea 03/13/18 blood-glucose meter See Dose Instructions .ROUTE .MEDSUPPLY #1 ea 03/13/18 finasteride 5 mg tablet 5 mg PO DAILY 03/13/18 lancets 28 gauge See Dose Instructions .ROUTE .MEDSUPPLY #25 ea 03/13/18 metformin 1,000 mg tablet 1,000 mg PO BID #60 tab 06/05/20 Clopidogrel Bisulfate [Plavix] 75 mg PO DAILY 08/05/20 Levothyroxine Sodium [Synthroid] 75 mcg PO DAILY 08/05/20 Sildenafil Citrate [Revatio] 20 mg PO PRN PRN 08/05/20 Simvastatin 40 mg PO HS 08/05/20 glipiZIDE [Glipizide] 10 mg PO BID 08/05/20
[2020-08-07 12:46] VITALS: BP 117/83
== END 2020-08-07 13:25 | disposition home or self-care (01) | DRG 177 ==
LOC: ER 12:59 → SCU 12:59
PROVIDERS: ADMIT Internal Medicine; ATTEND Internal Medicine
DX: I10 Essential (primary) hypertension; J12.82 Pneumonia due to coronavirus disease 2019; E11.65 Type 2 diabetes mellitus with hyperglycemia; U07.1 COVID-19; R41.0 Disorientation, unspecified; E78.5 Hyperlipidemia, unspecified; E87.6 Hypokalemia; G93.41 Metabolic encephalopathy; E03.9 Hypothyroidism, unspecified